=== PATIENT | female | born 1990 | race Caucasian/White ===

== ENCOUNTER 2019-12-02 14:22 | Outpatient (CLI) | payer OTHER, SELFPAY ==
--- NOTE | ~2019-12-02 | US_ITS ---
EXAMINATION: US renal BI EXAM DATE: 12/02/2019 15:06 INDICATION: Lupus. TECHNIQUE: Multiple grayscale and Doppler images of the kidneys were obtained (by a technologist who performed the scan) and subsequently reviewed. There is no prior study for comparison. FINDINGS: Right kidney: There is normal contour and echogenicity. It measures 10.3 x 5.4 x 3.9 centimeters. T here are no focal renal lesions identified. There is no hydronephrosis. Left kidney: There is normal contour and echogenicity. It measures 10.2 x 4.5 x 4.4 centimeters. Th ere are no focal renal lesions identified. There is no hydronephrosis. Bladder unremarkable. IMPRESSION: 1. Sonographically unremarkable kidneys. Reviewed, dictated and finalized at location B.
== END 2019-12-02 14:23 | disposition home or self-care (01) ==
LOC: ANHIMG 14:29
PROVIDERS: PCP Internal Medicine; Visit Provider Internal Medicine
DX: R60.9 Edema, unspecified (principal)
CPT/HCPCS: 76775

== ENCOUNTER 2021-08-18 13:21 | Observation (INO) | payer OTHER, MEDICAID, SELFPAY ==
--- NOTE | ~2021-08-18 | US_ITS ---
EXAMINATION: US OB follow up w BPP DATE: 08/18/2021 14:54 INDICATION: Vaginal bleeding during third trimester . Complete previa. TECHNIQUE: Real-time pelvic ultrasound was performed utilizing transabdominal probe. The interpreting radiologist was not present for the study. COMPARISON: None. FINDINGS: There is a single living fetus in vertex presentation. The placenta is posterior and appears to exte nd caudally to near the region of the cervix which is not clearly visualized. No evident subchorionic hematoma. heart rate is 136 beats per minute (bpm). Normal amniotic fluid index of 12.4 cm (5t h%-95%: 8.3-24.5 cm at 33 weeks estimated gestational age) The following biometric data were obtained: BPD: 7.0 cm -> 28 weeks 1 days Head circumference: 29.7 cm -> 32 weeks 6 days Abdominal circumference: 28.4 cm -> 32 weeks 3 days Femur length: 5.8 cm -> 30 weeks 3 days Dolichocephaly with cephalic index of 63%. These measurements are otherwise concordant. Head circumference to abdominal circumference ratio: 1.05 (normal range 0.96-1.17). Estimated weight: 1773 g (+/-) 266 g, 3 lbs 15 oz (+/-) 9 oz Biophysical profile performed by the technologist: breathing (30 sec sustained breathing in 30 minutes): 2 out of 2 movement (3 gross body movements in 30 minutes): 2 out of 2 tone (one episode of slnyqfd-ajexaghuo-lsidghp limb movement): 2 out of 2 Amniotic fluid pocket (2 cm): 2 out of 2 Total score: 8 out of 8 IMPRESSION: 1. Single living fetus in vertex presentation with heart rate of 136 bpm. 2. Biophysical profile 8 out of 8. 3. Posterior placenta which extends caudally to the expected location of the cervix which is not yina rly visualized. 4. Gestational age by ultrasound of 31 weeks 0 day(s) +/-2 weeks and 1 day with ultrasound estimated date of delivery (ELVIN) of 10/20/2021. Estimated weight is 8th percentile by Hadlock criteria wh en 10/06/2021 is used as the ELVIN. Please correlate with clinical information or earlier ultrasounds for most accurate ELVIN. 5. Dolichocephaly with cephalic index of 63% Reviewed, dictated and finalized at location A. IMPRESSION: 1. Single living fetus in vertex presentation with heart rate of 136 bpm. 2. Biophysical profile 8 out of 8. 3. Posterior placenta which extends caudally to the expected location of the ce rvix which is not clearly visualized. 4. Gestational age by ultrasound of 31 weeks 0 day(s) +/-2 weeks and 1 day wit h ultrasound estimated date of delivery (ELVIN) of 10/20/2021. Estimated grace ght is 8th percentile by Hadlock criteria when 10/06/2021 is used as the ELVIN. Ple ase correlate with clinical information or earlier ultrasounds for most accurat e ELVIN. 5. Dolichocephaly with cephalic index of 63%
[2021-08-18 13:31] VITALS: BP 145/95; PULSE 117
[2021-08-18 13:46] VITALS: BP 125/79; PULSE 102
[2021-08-18 14:01] VITALS: BP 127/87; PULSE 97
--- NOTE | 2021-08-18 14:05 | OBADM ---
This patient, Ti Tomas, admitted to the OB room OB Post 116 for observation. Patient/family oriented to hospital policies and general routines including ID bracelet, bed and alarms, visiting hours, pain management, procedures, bathroom and other care routines, personal items, smoking policy, room service/diet, and visiting hours. Patient/Family are encouraged to report perceived risks to care and to ask questions if they do not understand what they are told or what they should do.
--- NOTE | 2021-08-18 14:05 | PC.NURSE ---
[address]Santi MOELLERM called,informed pt came in stating she had some bleeding 2 days ago that resolved so she didn't come in but had some specs of old blood today and hasn't felt the baby move like she normally does. Informed no contractions are noted, 10x10 accelerations noted with only one 15x15. Pt is feeling more movement since she came here. Orders received to get US for bpp,placenta check,lucie, growth.
[2021-08-18 15:37] LABS: Add Urine Microscopic? YES; Appearance Urine Cloudy (Clear); Bacteria Urine Trace /hpf; Bilirubin Urine Negative (Negative); Blood Urine 3+ (Negative); Color Urine Yellow (Yellow); Glucose Urine UA Negative (Negative); Ketones Urine Negative (Negative); Leukocyte Esterase Ur 2+ LEU/UL (Negative); Mucus Urine Rare /lpf; Nitrate Urine Negative (Negative); Protein Urine Negative (Negative); Specific Grav Ur 1.015 (1.001-1.035); Squamous Epithelial Cell Urine Many /hpf (Few); Urobilinogen Urine Negative mg/dL (<2.0)
--- NOTE | 2021-08-20 07:02 | PM.OBTRLD ---
OB - Triage/Final Diagnosis Visit Information Date of evaluation: 08/18/21 Reason for evaluation: other (bleeding) Comments/Additional reasons for admission: I have assessed the risk for this patient, Ti Tomas, and determined that she would benefit from observation care. Evaluation Laboratory results: Laboratory Tests 08/18/21 15:18 Urine Color Yellow Urine Appearance Cloudy H Urine pH 6.0 Ur Specific [place] 1.015 Urine Protein Negative Urine Glucose (UA) Negative Urine Ketones Negative Ur Blood (Man) 3+ H Urine Nitrate Negative Urine Bilirubin Negative Urine Urobilinogen Negative Leukocyte Esterase Rfl 2+ H Urine RBC 3-5 H Urine WBC 10-15 H Ur Squamous Epith Cells Many H Urine Bacteria Trace Urine Mucus Rare
== END 2021-08-18 16:10 | disposition home or self-care (01) ==
PROVIDERS: Advanced Practice Midwife; Admitting Provider Obstetrics & Gynecology; PCP Internal Medicine; Visit Provider Obstetrics & Gynecology
DX: O46.8X3 Other antepartum hemorrhage, third trimester (principal); Z3A.33 33 weeks gestation of pregnancy
CPT/HCPCS: 76816; 76819; 81001; 87086; G0378; G0379

== ENCOUNTER 2021-08-21 11:54 | Observation (INO) | payer OTHER, MEDICAID, SELFPAY ==
--- NOTE | ~2021-08-21 | US_ITS ---
EXAMINATION: US OB limited w BPP DATE: 08/21/2021 14:31 CDT INDICATION: Bleeding. Placenta previa. TECHNIQUE: Real-time transabdominal obstetric ultrasound. FINDINGS: Ultrasound dated 08/18/2021 There is a single living fetus in breech presentation. The placenta is posterior with a placenta pre via. cardiac activity and movement is noted with a heart rate of 134 beats per minute. A FI is normal measuring 12.0 cm. Biophysical profile: breathin of 2 movement: 2 of 2 tone: 2 of 2 Amniotic flud pocket: 2 of 2 Total score: 8 of 8 IMPRESSION: 1. Single living intrauterine in breech presentation. 2: Total biophysical profile score of 8/8. 3: Placenta previa. Reviewed, dictated and finalized at location A.
[2021-08-21 12:15] VITALS: BMI 32.6
--- NOTE | 2021-08-21 12:15 | OBADM ---
This patient, Ti Tomas, admitted to the OB room OB Post 115 for observation. Patient/family oriented to hospital policies and general routines including ID bracelet, bed and alarms, visiting hours, pain management, procedures, bathroom and other care routines, personal items, smoking policy, room service/diet, and visiting hours. Patient/Family are encouraged to report perceived risks to care and to ask questions if they do not understand what they are told or what they should do.
[2021-08-21 13:01] VITALS: BP 130/81; PULSE 95
[2021-08-21 13:15] VITALS: BP 122/80; PULSE 99
[2021-08-21 13:30] VITALS: BP 126/77; PULSE 95
[2021-08-21 13:45] VITALS: BP 124/82; PULSE 92
[2021-08-21 14:27] VITALS: BP 100/74; PULSE 98
[2021-08-21 14:30] VITALS: BP 115/80; PULSE 106
--- NOTE | 2021-09-10 08:33 | PM.OBPNVD ---
OB - PN: Subj Subjective Date/time seen: 09/10/21 08:33 31-year-old multiparous previa who presented for vaginal bleeding. After ultrasound she left against medical advice. OB - PN A/P Time Spent With Patient Time: Total time spent is greater than 50% in coordination of care (as documented) at patient's floor/unit and/or counseling patient:
== END 2021-08-21 15:47 | disposition left against medical advice (07) ==
PROVIDERS: Admitting Provider Obstetrics & Gynecology; PCP Internal Medicine; Visit Provider Obstetrics & Gynecology
DX: O46.93 Antepartum hemorrhage, unspecified, third trimester (principal); Z3A.33 33 weeks gestation of pregnancy
CPT/HCPCS: 76815; 76819; G0378; G0379

== ENCOUNTER 2021-08-31 22:39 | Inpatient (IN) | payer OTHER, MEDICAID, SELFPAY ==
--- NOTE | ~2021-08-31 | XR_ITS ---
EXAMINATION: XR chest 2V DATE: 09/01/2021 16:29 INDICATION: Shortness of breath and cough. Recent section. TECHNIQUE: Frontal and lateral views of the chest were obtained. COMPARISON: Chest 2 views 10/17/2012 FINDINGS: There are patchy airspace opacities in the mid and lower lung zones, left worse than right. No pleural effusion or pneumothorax. The heart size is normal. IMPRESSION: 1. Patchy airspace opacities in the mid and lower lung zones, left worse than right, consistent with atelectasis versus pneumonia. Reviewed, dictated and finalized at location A. IMPRESSION: 1. Patchy airspace opacities in the mid and lower lung zones, left worse than r ight, consistent with atelectasis versus pneumonia.
--- NOTE | 2021-08-31 23:15 | PM.IMHP ---
H&P: HPI History of Present Illness Date/Time: 08/31/21 23:15 Chief Complaint: bleeding Narrative: Ti is a 31yo at 34.5 who presented with SROM and heavy vaginal bleeding with known placenta previa. is complicated by scant care, only 2 visits, newly diagnosed Hep C, tobacco use, hypothyroid (not taking medication), bipolar. She drove herself here and was brought in by staff with heavy bleeding, >500cc so far for certain. Pt denies recent drug use and has remote history of IVDU. ALso IUGR 8% on last US a month ago. Review of Systems Review of Systems: All systems reviewed & are unremarkable except as noted in HPI and below PMFSH Past Medical History Medical History (Updated 02/20/20 @ 10:57 by Darian Redman Jr., MD) Bipolar II disorder Family History Family History (Updated 11/21/19 @ 15:06 by Darian Redman Jr., MD) Mother Diabetes mellitus COPD mixed type CHF (congestive heart failure) Hypertensive heart disease with congestive heart failure and chronic kidney disease Sibling Crohn's disease, unspecified, without complications Sibling Thyroid disease Social History Social History (Updated 11/21/19 @ 15:09 by Darian Redman Jr., MD) Smoking packs per day: 0.5 Smoking cigarettes per day: 10.0 Years smoked: 14 Smoking pack-years: 7.00 Smoking status: Current every day smoker Tobacco type: cigarettes Second hand tobacco smoke exposure: Yes Substance use: current Substance use type: other Other substance usage details: used to smoke weed when younger Last use: 5 years ago Gender identity (if verbalized by the patient): Female Sexual Orientation (if Verbalized by the Patient): Straight or Heterosexual Spiritual care concerns: Yes Agree to blood products: Yes Meds Home Medications and Allergies Home Medications Medication Instructions Recorded Confirmed Type quetiapine 150 mg tablet,extended 150 mg PO QPM 30 Days #30 tablet 08/13/20 Rx release 24 hr Allergies Allergy/AdvReac Type Severity Reaction Status Date / Time Penicillins Allergy Unknown RASH/ HIVES Verified 07/01/20 15:48 Exam Const: General: no acute distress Resp: Effort & Inspection: normal respiratory effort Auscultation: clear to auscultation bilaterally Cardio: Rate: regular rate Rhythm: regular rhythm GI: GI Palp: Yes Soft to palpation Extrem: General: normal to inspection Assessment and Plan Additional Plan Plan primary CS for bleeding previa 34.5 labs ordered re thyroid and Hep C UDS Discussed RBA, pt consented, all questions answered. FHT category 1 at this time will proceed as soon as IV placed..
[2021-08-31 23:18] LABS: Basophils Percent Auto 0.2 % (0.2-1.2); Eosinophils Absolute Auto 0.1 K/mm3 (0-0.3); Eosinophils Percent Auto 0.6 % (0-4.4); Hematocrit 34.3 % (37.0-47.0); Hemoglobin 11.4 g/dL (12.0-15.0); Immature Granulocyte Absolute 0.05 K/mm3 (0.00-0.031); Immature Granulocyte Percent A 0.5 % (0-0.5); Lymphocytes Absolute Auto 1.99 K/mm3 (0.9-3.2); Lymphocytes Percent Auto 21.4 % (18.3-44.2); Mean Corpuscular HGB Conc 33.2 g/dl (32-36); Mean Corpuscular Hemoglobin 29.5 pg (26-34); Mean Corpuscular Volume 88.9 fl (80-100); Mean Platelet Volume 10.4 fl (7.4-10.4); Monocytes Absolute Auto 0.7 K/mm3 (0.1-0.6); Monocytes Percent Auto 7.1 % (2.6-8.5); Neutrophils Absolute Auto 6.5 K/mm3 (1.3-6.7); Neutrophils Percent Auto 70.2 % (45.5-73.1); Platelet Count Result 274 k/mm3 (150-375); Red Blood Count 3.86 M/mm3 (4.2-5.4); Red Cell Distribution Width 13.7 % (11.5-14.5); White Blood Count 9.3 K/mm3 (4.5-10.0)
[2021-08-31 23:28] LABS: Alanine Aminotransferase 24 U/L (4-35); Albumin Level 3.7 g/dL (3.5-5.1); Alkaline Phosphatase 165 U/L (38-126); Anion Gap 7 mmol/L (8-16); Aspartate Amino Transferase 28 U/L (14-36); Bilirubin,Total 0.4 mg/dL (0.2-1.3); Blood Urea Nitrogen 7 mg/dL (7-17); Calcium 9.6 mg/dL (8.4-10.2); Carbon Dioxide 21 mmol/L (22-30); Chloride 107 mmol/L (98-107); Estimated Glomerular Filt Rate > 60; Glucose 101 mg/dL (65-110); Potassium 3.9 mmol/L (3.4-5.0); Sodium 135 mmol/L (137-145)
--- NOTE | 2021-08-31 23:55 | WPDANESEPP ---
Anes - Eval Pre Procedure Date/Time: 08/31/21 23:55 Pre Op Diagnosis: Placenta Previa Patient Data Age: 31 Gender: F Height: Weight: Allergies Allergy/AdvReac Type Severity Reaction Status Date / Time Penicillins Allergy Unknown RASH/ HIVES Verified 07/01/20 15:48 Home Medications Medication Instructions Recorded Confirmed Type quetiapine 150 mg tablet,extended 150 mg PO QPM 30 Days #30 tablet 08/13/20 Rx release 24 hr Laboratory Tests 08/31/21 08/31/21 08/31/21 23:08 23:09 23:09 WBC 9.3 K/mm3 K/mm3 (4.5-10.0) RBC 3.86 M/mm3 L M/mm3 (4.2-5.4) Hgb 11.4 g/dL L g/dL (12.0-15.0) Hct 34.3 % L % (37.0-47.0) MCV 88.9 fl fl (80-100) MCH 29.5 pg pg (26-34) MCHC 33.2 g/dl g/dl (32-36) RDW 13.7 % % (11.5-14.5) Plt Count 274 k/mm3 k/mm3 (150-375) MPV 10.4 fl fl (7.4-10.4) Immature Gran % (Auto) 0.5 % % (0-0.5) Neut % (Auto) 70.2 % % (45.5-73.1) Lymph % (Auto) 21.4 % % (18.3-44.2) [place] % (Auto) 7.1 % % (2.6-8.5) Eos % (Auto) 0.6 % % (0-4.4) Baso % (Auto) 0.2 % % (0.2-1.2) Lymph # (Auto) 1.99 K/mm3 K/mm3 (0.9-3.2) [place] # (Auto) 0.7 K/mm3 H K/mm3 (0.1-0.6) Eos # (Auto) 0.1 K/mm3 K/mm3 (0-0.3) Baso # (Auto) 0.0 K/mm3 K/mm3 (0.0-0.1) Abs Immat Gran (auto) 0.05 K/mm3 H K/mm3 (0.00-0.031) Absolute Neuts (auto) 6.5 K/mm3 K/mm3 (1.3-6.7) Absolute Nucleated RBC 0.0 K/mm3 K/mm3 (0.0-0.012) Nucleated RBC % 0.0 % % (0.0-0.2) Sodium 135 mmol/L L mmol/L (137-145) Potassium 3.9 mmol/L mmol/L (3.4-5.0) Chloride 107 mmol/L mmol/L (98-107) Carbon Dioxide 21 mmol/L L mmol/L (22-30) Anion Gap 7 mmol/L L mmol/L (8-16) BUN 7 mg/dL mg/dL (7-17) Creatinine 0.50 mg/dL L mg/dL (0.7-1.0) Estim Creat Clear Calc Not Reportable Estimated GFR > 60 (59 - ) Glucose 101 mg/dL mg/dL (65-110) Calcium 9.6 mg/dL mg/dL (8.4-10.2) Total Bilirubin 0.4 mg/dL mg/dL (0.2-1.3) Direct Bilirubin AST 28 U/L U/L (14-36) ALT 24 U/L U/L (4-35) Alkaline Phosphatase 165 U/L H U/L (38-126) Total Protein 8.0 g/dL g/dL (6.3-8.2) Albumin 3.7 g/dL g/dL (3.5-5.1) RPR Hep Bs Antigen HIV 1&2 Ab/P24 Ag 4thGn Rubella IgG Antibody Pending 08/31/21 08/31/21 08/31/21 23:09 23:09 23:12 WBC RBC Hgb Hct MCV MCH MCHC RDW Plt Count MPV Immature Gran % (Auto) Neut % (Auto) Lymph % (Auto) [place] % (Auto) Eos % (Auto) Baso % (Auto) Lymph # (Auto) [place] # (Auto) Eos # (Auto) Baso # (Auto) Abs Immat Gran (auto) Absolute Neuts (auto) Absolute Nucleated RBC Nucleated RBC % Sodium Potassium Chloride Carbon Dioxide Anion Gap BUN Creatinine Estim Creat Clear Calc Estimated GFR Glucose Calcium Total Bilirubin Direct Bilirubin AST ALT Alkaline Phosphatase Total Protein Albumin RPR Pending Hep Bs Antigen Pending HIV 1&2 Ab/P24 Ag 4thGn Pending Rubella IgG Antibody 08/31/21 23:12 WBC RBC Hgb Hct MCV MCH MCHC RDW Plt Count M
[2021-08-31 23:59] LABS: Alanine Aminotransferase 23 U/L (4-35); Albumin Level 3.6 g/dL (3.5-5.1); Alkaline Phosphatase 166 U/L (38-126); Aspartate Amino Transferase 28 U/L (14-36); Bilirubin,Total 0.3 mg/dL (0.2-1.3)
[2021-09-01] VITALS (68 sets, daily range): BP systolic 91–137; BP diastolic 50–92; PULSE 51–129; RESP 13–24; TEMP 36–37.2; O2SAT 90–97; BMI 31.4
--- NOTE | 2021-09-01 00:04 | WPDANESEFPP ---
Anes - Eval Final PreProcedure Day of Procedure 09/01/21 00:04 Patient weight: obese Heart: regular rate and rhythm Lungs: clear to auscultation and normal air movement Airway: Mallampati scale class III Neurological: alert and oriented Last oral intake: >/= 8 hours ASA classification: III Emergent: yes Anesthetic plan: proceed Anesthesia type and monitoring: general ETT and standard monitoring Other findings: Placental abruption - emergent, and unable to safely attempt spinal Results Review: All pre-operative results and documents have been reviewed as part of the pre-operative evaluation. Informed Consent: The patient's anesthetic plan and its attendant risks and benefits were discussed with the patient/family/POA. Questions were solicited and answers provided to the satisfaction of the patient/family/POA.
[2021-09-01 00:08] LABS: HIV 1/2 Ab P24 Ag Result Negative (Negative)
[2021-09-01 00:10] LABS: Rubella IgG Antibody < 0.6 IU/ML
[2021-09-01 00:26] LABS: Hepatitis B Surface Antigen Negative (Negative)
--- NOTE | 2021-09-01 00:34 | PM.OBPRVD ---
OB - Delivery Note Procedure Delivery date: 09/01/21 Procedure: classical section Events: Other (scant care, newly diagnose Hepatitis C) Intrapartal Events: Other (bleeding placenta previa) Route of delivery: (classical) Specimen: Yes (placenta) Quantitative Blood Loss (ml): 715 (plus about 500cc prior to in her car, on wheelchair, clothing, floor, and bed) Anesthesia type: General Disposition: Floor Complications: none Narrative: The patient was taken to the OR and was placed in dorsal supine position with left lateral tilt. SCDs and vang were placed. She was prepped and draped in the normal sterile fashion. GETA was administered. A Pfannensteil skin incision was made and carried through to the underlying layer of fascia. The fascia was incised in the midline and then extended laterally using Padilla scissors. The muscles were in the midline and the peritoneum was entered bluntly. The peritoneal incision was extended inferiorly and superiorly with care to avoid the bladder. A low transverse uterine incision was started with a scalpel but upon noting a very thick lower uterine segment, no palpable presenting part, and placenta presenting, it was converted to a classical incision. Minimal fluid was noted, a moderate amount of placenta delivered prior to the baby. The head was delivered, followed by the remainder of the baby. The baby's oropharynx was suctioned and he was handed to the waiting pediatrics team. The placenta was then removed manually. The uterus was exteriorized. A moist lap sponge was used to curette the endometrium. The uterine incision was then closed in layers with 3-0 vicryl. Good hemostasis was noted. The posterior cul de sac was irrigated with normal saline and cleared of all clot and debris. The uterus was returned to the abdomen. Both lateral gutters were then irrigated. Seprafilm was placed over the uterine incision. The rectus muscles were inspected and found to be hemostatic. The fascia was reapproximated using 0-Vicryl in running fashion. The subcutaneous tissue was irrigated with normal saline and made hemostatic with Bovie electrocautery. The skin was then closed with absorbable sheila. Steri strips and a bandage were applied. The uterus was evacuated. The patient tolerated the procedure very well. All counts were correct. She was taken to the recovery room in good condition. [place] Baby Date of : 09/01/21 Time of : 23:40 Weeks of gestation at delivery: 35 Infant gender: Male presentation: vertex Placenta delivery description: Manual Removal Cord Vessel Description: 3 Vessels and Clamped/Cut
--- NOTE | 2021-09-01 01:02 | LDADM ---
This patient, Ti Tomas, was admitted to Labor/Delivery/Recovery 120 on 08/31/21 at 22:39. Plans for labor, pain management and were discussed with patient. Patient/family oriented to hospital policies and general routines including ID bracelet, bed and alarms, visiting hours, pain management, procedures, bathroom and other care routines, personal items, smoking policy, room service/diet and guest tray routines, security routines, and visiting hours. Patient/Family are encouraged to report perceived risks to care and to ask questions if they do not understand what they are told or what they should do. See OBIX for further documentation.
[2021-09-01] MEDS: MORPHINE SULFATE INJ (*CRX) 10 MG/ML AMP 2 MG IV PUSH ×4 (01:24→02:05)
[2021-09-01 01:52] LABS: Amphetamine Screen Urine Negative (Negative); Barbiturate Screen Urine Negative (Negative); Benzodiazepines Screen Urine Negative (Negative); Cannabinoid Screen Urine Negative (Negative); Cocaine Screen Urine Negative (Negative); Methadone Screen Urine Negative (Negative); Opiate Screen Urine Negative (Negative); Phencyclidine Screen Urine Negative (Negative)
[2021-09-01] MEDS: HYDROmorphon 0.2MG/ML PCA(*CRX 6 MG/30 ML PCA.VIAL 1 MG IV CONT (02:20)
--- NOTE | 2021-09-01 02:54 | OBPPTRN ---
Patient transferred to post room #288 via bed. Support person present. Oriented to unit, room, information board, rooming in, admission packet and security measures. Patient verbalizes understanding.
[2021-09-01] MEDS: KETOROLAC 30 MG/ML VIAL (*BKC) IV PUSH ×4 (03:58→23:50)
[2021-09-01] MEDS: DEXTROSE 5%/0.45% SOD CHL 1,000 ML 125 ML IV CONT (04:57)
[2021-09-01 06:28] LABS: Rapid Plasma Reagin Non-Reactive (NonReactive)
--- NOTE | 2021-09-01 07:25 | PM.OBPNVD ---
OB - PN: Subj Subjective Date/time seen: 09/01/21 07:25 incision CDI Interval history: Pt has ASSISTANT ASSOCIATE PROFESSOR, doing well Patient comments: incisional pain [place] baby status: doing well OB - PN: Obj Data Labs CBC & Chem 7: 08/31/21 23:09 08/31/21 23:08 Labs: Laboratory Results - last 24 hr 08/31/21 08/31/21 08/31/21 23:08 23:09 23:09 WBC 9.3 RBC 3.86 L Hgb 11.4 L Hct 34.3 L MCV 88.9 MCH 29.5 MCHC 33.2 RDW 13.7 Plt Count 274 MPV 10.4 Immature Gran % (Auto) 0.5 Neut % (Auto) 70.2 Lymph % (Auto) 21.4 [place] % (Auto) 7.1 Eos % (Auto) 0.6 Baso % (Auto) 0.2 Lymph # (Auto) 1.99 [place] # (Auto) 0.7 H Eos # (Auto) 0.1 Baso # (Auto) 0.0 Abs Immat Gran (auto) 0.05 H Absolute Neuts (auto) 6.5 Absolute Nucleated RBC 0.0 Nucleated RBC % 0.0 Sodium 135 L Potassium 3.9 Chloride 107 Carbon Dioxide 21 L Anion Gap 7 L BUN 7 Creatinine 0.50 L Estim Creat Clear Calc Not Reportable Estimated GFR > 60 Glucose 101 Calcium 9.6 Total Bilirubin 0.4 Direct Bilirubin AST 28 ALT 24 Alkaline Phosphatase 165 H Total Protein 8.0 Albumin 3.7 Urine Opiates Screen Urine Methadone Screen Ur Barbiturates Screen Ur Phencyclidine Scrn Ur Amphetamine Screen U Benzodiazepines Scrn Urine Cocaine Screen U Cannabinoids Screen RPR Hep Bs Antigen HIV 1&2 Ab/P24 Ag 4thGn Rubella IgG Antibody < 0.6 L Blood Type Antibody Screen 08/31/21 08/31/21 08/31/21 23:09 23:09 23:12 WBC RBC Hgb Hct MCV MCH MCHC RDW Plt Count MPV Immature Gran % (Auto) Neut % (Auto) Lymph % (Auto) [place] % (Auto) Eos % (Auto) Baso % (Auto) Lymph # (Auto) [place] # (Auto) Eos # (Auto) Baso # (Auto) Abs Immat Gran (auto) Absolute Neuts (auto) Absolute Nucleated RBC Nucleated RBC % Sodium Potassium Chloride Carbon Dioxide Anion Gap BUN Creatinine Estim Creat Clear Calc Estimated GFR Glucose Calcium Total Bilirubin Direct Bilirubin AST ALT Alkaline Phosphatase Total Protein Albumin Urine Opiates Screen Urine Methadone Screen Ur Barbiturates Screen Ur Phencyclidine Scrn Ur Amphetamine Screen U Benzodiazepines Scrn Urine Cocaine Screen U Cannabinoids Screen RPR Non-reactive Hep Bs Antigen Negative HIV 1&2 Ab/P24 Ag 4thGn Negative Rubella IgG Antibody Blood Type Antibody Screen 08/31/21 08/31/21 09/01/21 23:12 23:12 01:31 WBC RBC Hgb Hct MCV MCH MCHC RDW Plt Count MPV Immature Gran % (Auto) Neut % (Auto) Lymph % (Auto) [place] % (Auto) Eos % (Auto) Baso % (Auto) Lymph # (Auto) [place] # (Auto) Eos # (Auto) Baso # (Auto) Abs Immat Gran (auto) Absolute Neuts (auto) Absolute Nucleated RBC Nucleated RBC % Sodium Potassium Chloride Carbon Dioxide Anion Gap BUN Creatinine Estim Creat Clear Calc Estimated GFR Glucose Calcium Total Bilirubin 0.3 Direct Bilirubin 0.0 AST 28 ALT 23 Alkaline Phosphatase 166 H Total Protein 7.0 Albumin 3.6 Urine Opiates Screen Negative Urine Methadone Screen Negative Ur Barbiturates Screen Negative Ur Phencyclidine Scrn Negative Ur Amphetamine Screen Negative U Benzodiazepines Scrn Negative Urine Cocaine Screen Negative U Cannabinoids Screen Negative RPR Hep Bs Antigen HIV 1&2 Ab/P24 Ag 4thGn Rubella IgG Antibody Blood Type O Positive Antibody Screen Negative OB - PN A/P Plan day: 1 Comments: s/p general anesthesia for sectio, bleeding, complete previa, awaiting am labs Time Spent With Patient Time: Total time spent is greater than 50% in coord
[2021-09-01 09:27] LABS: Basophils Percent Auto 0.1 % (0.2-1.2); Hematocrit 25.9 % (37.0-47.0); Hemoglobin 8.5 g/dL (12.0-15.0); Immature Granulocyte Absolute 0.06 K/mm3 (0.00-0.031); Immature Granulocyte Percent A 0.4 % (0-0.5); Lymphocytes Absolute Auto 1.06 K/mm3 (0.9-3.2); Lymphocytes Percent Auto 7.1 % (18.3-44.2); Mean Corpuscular HGB Conc 32.8 g/dl (32-36); Mean Corpuscular Hemoglobin 29.6 pg (26-34); Mean Corpuscular Volume 90.2 fl (80-100); Mean Platelet Volume 10.6 fl (7.4-10.4); Monocytes Absolute Auto 0.8 K/mm3 (0.1-0.6); Monocytes Percent Auto 5.5 % (2.6-8.5); Neutrophils Percent Auto 86.9 % (45.5-73.1); Platelet Count Result 237 k/mm3 (150-375); Red Blood Count 2.87 M/mm3 (4.2-5.4); Red Cell Distribution Width 13.6 % (11.5-14.5)
[2021-09-01 09:42] LABS: Free T4 Free Thyroxine 0.59 ng/mL (0.78-2.19)
--- NOTE | 2021-09-01 11:35 | PC.NURSE ---
Toradol given and FIRE PREVENTION BUREAU CAPTAIN discontinued, patient is rating pain a 7 but wants FIRE PREVENTION BUREAU CAPTAIN discontinued at this time. She states the pain is only when she coughs.
--- NOTE | 2021-09-01 12:48 | PC.NURSE ---
On 09/01/21, the student, Jaciel Nash, provided care and completed [facility] documentation on this patient. I have reviewed the student's documentation and agree with the findings.
[2021-09-01] MEDS: KCL 20 MEQ/D5/0.45% SOD CHL 1,000 ML 125 ML IV CONT (13:23)
[2021-09-01] MEDS: POLYSACCHARIDE IRON COMPLEX 150 MG CAPSULE PO (15:27)
[2021-09-01] MEDS: DOCUSATE SODIUM 100 MG CAPSULE PO (15:27)
[2021-09-01] MEDS: HYDROcodone/acetaminophen (*CRX) 10-325 MG TABLET 1 TAB PO ×2 (15:27→21:52)
[2021-09-01] MEDS: ALBUTEROL SULFATE NEB 2.5 MG/3 ML INH 1.25 MG INHALATION (16:05)
--- NOTE | 2021-09-01 16:20 | PCCCNOTE ---
Care Coordination Consult: Met with pt. today who reports this is her second child. She has a 9 year old at home. Pt. lives at home with her 9 year old. FOB is involved but they are no longer together. Pt. complaining of pain with RN aware and pt. set to go down for testing. Pt. reports she does have her sister Erica who is supportive and can assist in some needs at discharge. resources provided. Pt. is current with [facility] but will look into [facility] services. Pt. reports her apartment has black mold issues and she is trying to get her landlord to address the issue. Spoke about housing resources that would include information on the [facility] Housing authority, this information was provided to her however she reports she does not need subsidized housing. She has all necessary supplies for the baby at home including a crib, carseat, clothing etc. She plans to bottle feed baby at discharge. Pt. was interested in a basket with baby supplies and this was provided to her. Pt. aware she tested negative for all substances at admission. Baby also tested negative in urinalysis at admission. Per RN pt. reports recreational marijuana use, pt. denies any continued marijuana use at discharge. Pt. denies any further case management needs.
--- NOTE | 2021-09-01 16:45 | WPDANLDNPN2 ---
Anes-Prog Note L&D-Neuraxial Date/Time: 09/01/21 16:45 Neuraxial medications: intrathecal PF morphine Opiod-related complaints: none Patient feedback: Patient satisfied with post-operative pain management.
--- NOTE | 2021-09-01 16:46 | WPDANLDPN2 ---
Anes-Prog Note L&D Date/Time: 09/01/21 16:46 Comfortable throughout: section Neuraxial method: spinal Epidural/Spinal procedure site: clean & non-tender Neuro status: Neuro function grossly intact. Cardiovascular status: normal Respiratory status: normal Airway patency: baseline Mental status: baseline Post-Op hydration status: normal Vital Signs: Last Vital Signs Temp 36.7 C 09/01/21 11:30 Pulse 116 H 09/01/21 15:30 Resp 24 H 09/01/21 15:30 BP 115/71 09/01/21 14:12 Pulse Ox 94 09/01/21 15:30 Pain score (VAS): 9 out of 10, one time dose of iv dilaudid ordered I/O: Intake & Output 09/01/21 09/01/21 09/01/21 07:59 15:59 23:59 Intake Total 22 Output Total 453 860 Balance -[phone] Post-procedural complaints: none Patient feedback: Patient satisfied with anesthetic care.
[2021-09-01] MEDS: HYDROmorphone HCL INJ (*CRX) 1 MG/ML SYR 0.5 MG IV PUSH (16:58)
[2021-09-01 17:36] LABS: Basophils Percent Auto 0.2 % (0.2-1.2); Eosinophils Percent Auto 0.1 % (0-4.4); Hematocrit 26.9 % (37.0-47.0); Hemoglobin 8.6 g/dL (12.0-15.0); Immature Granulocyte Absolute 0.06 K/mm3 (0.00-0.031); Immature Granulocyte Percent A 0.4 % (0-0.5); Lymphocytes Percent Auto 8.6 % (18.3-44.2); Mean Corpuscular Hemoglobin 29.8 pg (26-34); Mean Corpuscular Volume 93.1 fl (80-100); Mean Platelet Volume 10.4 fl (7.4-10.4); Monocytes Absolute Auto 0.8 K/mm3 (0.1-0.6); Monocytes Percent Auto 5.2 % (2.6-8.5); Neutrophils Absolute Auto 12.9 K/mm3 (1.3-6.7); Neutrophils Percent Auto 85.5 % (45.5-73.1); Platelet Count Result 239 k/mm3 (150-375); Red Blood Count 2.89 M/mm3 (4.2-5.4); White Blood Count 15.1 K/mm3 (4.5-10.0)
--- NOTE | 2021-09-01 17:56 | PC.NURSE ---
Dr. Arias notified of CBC results, no new orders received at this time. Will continue to monitor pt.
--- NOTE | 2021-09-01 18:48 | PC.NURSE ---
1415-Pt assisted up to chair. Pt did well getting out of bed and transferred to chair. Once in the chair she started coughing but it hurt to cough so she tried to muffle her cough but it just caused her to cough more until she was coughing uncontrollable and it caused her pain to increase. Due to the amount of coughing she became short of breath and said it was hard to breathe. Told her to relax and try to take some deep breaths. We hooked her up to the pulse ox and annika Leon took her vitals. Vitals were stable with pulse ox starting off at 92 and reaching 94% after a couple of minutes. Patients breathing returned to normal as coughing subsided. Call light within reach, told pt to call out when ready to get back in bed, she verbalized understanding. Pt sat in the chair till 1529 1530-- Pt. assisted back to bed and tolerated moving well but started coughing again. The coughing again made her short of breath and she had trouble breathing. Vitals again were taken and pulse ox was the same, started at 91% this time and only lg to 94%. Wheezing was heard in right side of chest. Dr. Arias was notified and orders received to get a nebulizer treatment for the patient and a chest x-ray. 1615- Pt. taken to x-ray per wheelchair 1640- Pt. back to the floor per wheelchair and assisted back to bed, again coughing and shortness of breath occur. With any movement coughing and shortness of breath seems to occur. 1710- Chest x-ray results called to Dr. Arias along with vital signs and status update. Orders received for blood work. 1756- Dr. Arias notified of labs and pt. status, no new orders received. Will continue to monitor pt. through the night and call if status changes 1809- Report given to Jerri Buckner RN
[2021-09-01] MEDS: SIMETHICONE 80 MG TAB.CHEW PO (23:50)
--- NOTE | 2021-09-01 23:50 | PC.NURSE ---
At 2345, this RN went to speak to the patient about getting up to the chair one last time for the evening and removing her vang catheter. Patient started coughing and moaning. I educated the patient on using her incentive spirometer to help with her breathing and coughing while splinting her abdomen. After having a moment, patient stated, I can't move because I cough every time I move then I can't breathe. Vital signs were obtained at this time and educated the patient about getting out of bed will help.
[2021-09-02] MEDS: HYDROcodone/acetaminophen (*CRX) 10-325 MG TABLET 1 TAB PO ×3 (04:13→14:00)
[2021-09-02 06:25] LABS: Basophils Percent Auto 0.2 % (0.2-1.2); Eosinophils Percent Auto 0.2 % (0-4.4); Hematocrit 24.1 % (37.0-47.0); Hemoglobin 7.7 g/dL (12.0-15.0); Immature Granulocyte Absolute 0.06 K/mm3 (0.00-0.031); Immature Granulocyte Percent A 0.5 % (0-0.5); Lymphocytes Absolute Auto 1.38 K/mm3 (0.9-3.2); Lymphocytes Percent Auto 10.6 % (18.3-44.2); Mean Corpuscular Volume 93.8 fl (80-100); Mean Platelet Volume 9.9 fl (7.4-10.4); Monocytes Absolute Auto 0.6 K/mm3 (0.1-0.6); Monocytes Percent Auto 4.6 % (2.6-8.5); Neutrophils Percent Auto 83.9 % (45.5-73.1); Platelet Count Result 214 k/mm3 (150-375); Red Blood Count 2.57 M/mm3 (4.2-5.4); Red Cell Distribution Width 14.1 % (11.5-14.5); White Blood Count 13.1 K/mm3 (4.5-10.0)
--- NOTE | 2021-09-02 07:36 | PM.OBPNVD ---
OB - PN: Subj Subjective Date/time seen: 09/02/21 07:36 Patient comments: no complaints, pain well controlled, tolerating diet and flatus present OB - PN: Obj Data Labs CBC & Chem 7: 09/02/21 06:20 08/31/21 23:08 Labs: Laboratory Results - last 24 hr 09/01/21 09/01/21 09/01/21 08:46 08:46 08:46 WBC 15.0 H RBC 2.87 L Hgb 8.5 L Hct 25.9 L MCV 90.2 MCH 29.6 MCHC 32.8 RDW 13.6 Plt Count 237 MPV 10.6 H Immature Gran % (Auto) 0.4 Neut % (Auto) 86.9 H Lymph % (Auto) 7.1 L [place] % (Auto) 5.5 Eos % (Auto) 0.0 Baso % (Auto) 0.1 L Lymph # (Auto) 1.06 [place] # (Auto) 0.8 H Eos # (Auto) 0.0 Baso # (Auto) 0.0 Abs Immat Gran (auto) 0.06 H Absolute Neuts (auto) 13.0 H Absolute Nucleated RBC 0.0 Nucleated RBC % 0.0 TSH 3.140 Free T4 0.59 L 09/01/21 09/02/21 17:31 06:20 WBC 15.1 H 13.1 H RBC 2.89 L 2.57 L Hgb 8.6 L 7.7 L Hct 26.9 L 24.1 L MCV 93.1 93.8 MCH 29.8 30.0 MCHC 32.0 32.0 RDW 14.0 14.1 Plt Count 239 214 MPV 10.4 9.9 Immature Gran % (Auto) 0.4 0.5 Neut % (Auto) 85.5 H 83.9 H Lymph % (Auto) 8.6 L 10.6 L [place] % (Auto) 5.2 4.6 Eos % (Auto) 0.1 0.2 Baso % (Auto) 0.2 0.2 Lymph # (Auto) 1.30 1.38 [place] # (Auto) 0.8 H 0.6 Eos # (Auto) 0.0 0.0 Baso # (Auto) 0.0 0.0 Abs Immat Gran (auto) 0.06 H 0.06 H Absolute Neuts (auto) 12.9 H 11.0 H Absolute Nucleated RBC 0.0 0.0 Nucleated RBC % 0.0 0.0 TSH Free T4 Imaging Radiologist's impression: Impressions Chest X-Ray 09/01/21 16:39 IMPRESSION: 1. Patchy airspace opacities in the mid and lower lung zones, left worse than right, consistent with atelectasis versus pneumonia. OB - PN A/P Plan day: 1 Comments: Post Op LTCS - no problems, panic attacks, SOB - nl CXR, nl SaO2, Xanax and inhaler, otherwise routine recovery Time Spent With Patient Time: Total time spent is greater than 50% in coordination of care (as documented) at patient's floor/unit and/or counseling patient: Exam Const: General: cooperative, healthy appearing, comfortable and no acute distress Resp: Auscultation: no crackles, no rales, no rhonchi and no wheezes Cardio: Rhythm: regular rhythm Heart sounds: no click and no murmurs GI: Inspection: non-distended Auscultation: normal bowel sounds Extrem: General: normal to inspection, no pedal edema and no calf tenderness
[2021-09-02 08:15] VITALS: BP 126/82; PULSE 117; RESP 20; TEMP 36.7; O2SAT 94
[2021-09-02] MEDS: IBUPROFEN 600 MG TABLET PO ×3 (08:24→20:29)
[2021-09-02] MEDS: DOCUSATE SODIUM 100 MG CAPSULE PO ×2 (08:25→17:15)
[2021-09-02] MEDS: SIMETHICONE 80 MG TAB.CHEW PO ×3 (08:25→20:29)
[2021-09-02] MEDS: POLYSACCHARIDE IRON COMPLEX 150 MG CAPSULE PO ×2 (08:25→17:14)
[2021-09-02] MEDS: ALPRAZolam (*CRX) 0.5 MG TABLET PO ×3 (09:49→20:29)
[2021-09-02] MEDS: ALBUTEROL SULFATE (*SP) AEROSOL 1 PUFF 2 PUFF INHALATION ×2 (11:00→17:22)
[2021-09-02] MEDS: ACETAMINOPHEN 325 MG TABLET 650 MG PO (17:13)
[2021-09-02] MEDS: HYDROcodone/acetaminophen (*CRX) 5-325 MG TABLET 1 TAB PO ×2 (17:14→20:31)
[2021-09-02 20:30] VITALS: BP 131/82; PULSE 111; RESP 20; TEMP 36.7; O2SAT 97
[2021-09-03] VITALS (11 sets, daily range): BP systolic 121–156; BP diastolic 83–105; PULSE 110–135; RESP 16–26; TEMP 36.6–37.2; O2SAT 95–98
[2021-09-03] MEDS: ALBUTEROL SULFATE (*SP) AEROSOL 1 PUFF 2 PUFF INHALATION ×3 (01:20→15:05)
--- NOTE | 2021-09-03 01:44 | PCRCNOTE ---
Pt & pt's significant other are both current everyday smokers. They have been going outside the hospital during her admission to smoke. I discussed with both of them the importance of quitting smoking not only for themselves, but also for their child and the 9-year-old child they have at home. We discussed the negative effect smoking has on both of them as well as the extremely negative impact both second hand and boiling house hand smoke have had on their 9-year-old child and is already having on their . We talked about different ways to quit and the benefit of them quitting together. The pt is interested in getting a nicotine patch while she is here, and her significant other thinks he will try cold turkey. I did let pt's nurse (Vicenta) know that the pt is interested in a nicotine patch. Pt is concerned that her cough and mucus issues are undiagnosed asthma. Pt's breath sounds are junky but she is moving air well to the bases. I discussed with the pt how quitting smoking would help with what is going on with her cough right now, and we also discussed the importance of moving around, using her incentive spirometer, and splinting her incision in order to have a more effective cough. Pt was advised to follow up with her general practitioner if she continues to have concerns about undiagnosed lung issues. Others have previously had similar conversations with the pt.
[2021-09-03] MEDS: NICOTINE (*PBKC) 14 MG PATCH 1 PATCH TRANSDERM ×2 (01:48→11:00)
--- NOTE | 2021-09-03 04:22 | PC.NURSE ---
several staff members have talked to pt. about taking deep breaths, using IS, decrease smoking, being more ambulatory pt. has agreed to attempt to stop smoking and requested nicotine patch
[2021-09-03] MEDS: IBUPROFEN 600 MG TABLET PO ×2 (04:37→19:58)
[2021-09-03] MEDS: SIMETHICONE 80 MG TAB.CHEW PO ×3 (04:37→19:58)
[2021-09-03] MEDS: ALPRAZolam (*CRX) 0.5 MG TABLET PO ×3 (04:37→20:02)
[2021-09-03] MEDS: HYDROcodone/acetaminophen (*CRX) 5-325 MG TABLET 1 TAB PO ×3 (04:38→19:58)
--- NOTE | 2021-09-03 07:24 | PM.OBPNVD ---
OB - PN: Subj Subjective Date/time seen: 09/03/21 07:24 Patient comments: no complaints baby status: doing well OB - PN: Obj Data Labs CBC & Chem 7: 09/02/21 06:20 08/31/21 23:08 OB - PN A/P Plan day: 3 Plan: routine care and discharge home Time Spent With Patient Time: Total time spent is greater than 50% in coordination of care (as documented) at patient's floor/unit and/or counseling patient: Review of Systems Review of Systems: All systems reviewed & are unremarkable except as noted in HPI and below Exam Narrative: Incision CDI Const: General: cooperative and healthy appearing
[2021-09-03] MEDS: POLYSACCHARIDE IRON COMPLEX 150 MG CAPSULE PO ×2 (09:23→20:00)
[2021-09-03] MEDS: DOCUSATE SODIUM 100 MG CAPSULE PO ×2 (09:24→19:58)
[2021-09-03] MEDS: BENZOCAINE/MENTHOL (*BKC) 18 EA LOZENGE 1 LOZENGE PO (16:37)
[2021-09-03] MEDS: BENZONATATE 100 MG CAPSULE PO (16:38)
[2021-09-03] MEDS: SODIUM CHLORIDE 0.9% IV 250 ML 30 ML IV CONT (17:58)
[2021-09-04] MEDS: ALBUTEROL SULFATE (*SP) AEROSOL 1 PUFF 2 PUFF INHALATION
[2021-09-04 00:11] LABS: Hematocrit 32.5 % (37.0-47.0); Hemoglobin 10.8 g/dL (12.0-15.0); Mean Corpuscular HGB Conc 33.2 g/dl (32-36); Mean Corpuscular Hemoglobin 29.7 pg (26-34); Mean Corpuscular Volume 89.3 fl (80-100); Mean Platelet Volume 9.6 fl (7.4-10.4); Platelet Count Result 289 k/mm3 (150-375); Red Blood Count 3.64 M/mm3 (4.2-5.4); Red Cell Distribution Width 13.9 % (11.5-14.5); White Blood Count 9.3 K/mm3 (4.5-10.0)
[2021-09-04 00:27] LABS: Alanine Aminotransferase 22 U/L (4-35); Albumin Level 3.5 g/dL (3.5-5.1); Alkaline Phosphatase 146 U/L (38-126); Anion Gap 7 mmol/L (8-16); Aspartate Amino Transferase 38 U/L (14-36); Bilirubin,Total 0.6 mg/dL (0.2-1.3); Blood Urea Nitrogen 9 mg/dL (7-17); Calcium 8.7 mg/dL (8.4-10.2); Carbon Dioxide 21 mmol/L (22-30); Chloride 107 mmol/L (98-107); Estimated CRCL calculation 131 ml/min; Estimated Glomerular Filt Rate > 60; Glucose 94 mg/dL (65-110); Potassium 4.1 mmol/L (3.4-5.0); Sodium 135 mmol/L (137-145); Uric Acid 5.7 mg/dL (2.5-7.5)
--- NOTE | 2021-09-04 05:45 | P.PNOB_ITS ---
OB - PN: Subj Subjective Date/time seen: 09/04/21 05:45 Interval history: c/o cough, has incentive spirometer, active smoker, BP slightly elevated, asymptomatic [place] baby status: doing well OB - PN: Obj Data Labs CBC & Chem 7: 09/03/21 23:50 09/03/21 23:50 Labs: Laboratory Results - last 24 hr 08/31/21 09/03/21 09/03/21 23:12 23:50 23:50 WBC 9.3 RBC 3.64 L Hgb 10.8 L D Hct 32.5 L MCV 89.3 MCH 29.7 MCHC 33.2 RDW 13.9 Plt Count 289 MPV 9.6 Sodium 135 L Potassium 4.1 Chloride 107 Carbon Dioxide 21 L Anion Gap 7 L BUN 9 Creatinine 0.60 L Estim Creat Clear Calc 131 Estimated GFR > 60 Glucose 94 Uric Acid 5.7 Calcium 8.7 Total Bilirubin 0.6 AST 38 H ALT 22 Alkaline Phosphatase 146 H Total Protein 7.0 Albumin 3.5 Blood Type O Positive Antibody Screen Negative Crossmatch See Detail OB - PN A/P Plan day: 4 Plan: routine care and discharge home Comments: Pt WBC count has decreased and Hemoglobin has increased, encourage incentive spirometer, encouraged smoking cessation, continue labetalol 200mg BID, f/u in office one week Time Spent With Patient Time: Total time spent is greater than 50% in coordination of care (as documente d) at patient's floor/unit and/or counseling patient: Review of Systems Review of Systems: All systems reviewed & are unremarkable except as noted in HPI and below Exam Narrative: Incision CDI Const: General: cooperative and Physically active
[2021-09-04 06:08] VITALS: PULSE 102
[2021-09-04] MEDS: LABETALOL HCL 100 MG TABLET 200 MG PO (06:08)
[2021-09-04 07:35] VITALS: BP 112/76; PULSE 94; RESP 22; TEMP 36.8; O2SAT 95
[2021-09-04] MEDS: SIMETHICONE 80 MG TAB.CHEW PO (07:39)
[2021-09-04] MEDS: POLYSACCHARIDE IRON COMPLEX 150 MG CAPSULE PO (07:40)
[2021-09-04] MEDS: HYDROcodone/acetaminophen (*CRX) 5-325 MG TABLET 1 TAB PO (07:40)
[2021-09-04] MEDS: DOCUSATE SODIUM 100 MG CAPSULE PO (07:40)
[2021-09-04] MEDS: IBUPROFEN 600 MG TABLET PO (07:41)
[2021-09-04] MEDS: ALPRAZolam (*CRX) 0.5 MG TABLET PO (07:55)
[2021-09-04] MEDS: BENZONATATE 100 MG CAPSULE PO (07:55)
[2021-09-04 15:46] LABS: Hepatitis C Viral RNA PCR 2650000 IU/mL
[2021-09-07 14:25] LABS: HCV Genotype, LiPA 2
--- NOTE | 2021-09-07 18:10 | PM.OBDSVD ---
DS: Admitting Diagnosis Discharge Date 09/04/21 Admitting Diagnosis placenta previa, bleeding OB - DS: Summary OB Procedures : None OB Procedures Intrapartum: OB Procedures: : Transfusion Peripartum Data Procedures: Procedures Operation Date: 08/31/21 23:20 Actual Procedure Side Surgeon p Section Not Applicable Emilia Glover MD Time Spent with Patient Time attestation: Total time spent providing and/or coordinating discharge services: DS: Data Data Completed and Pending Completed studies during hospitalization: Pending at discharge 08/31/21 23:41 Surgical [PTH] Routine Labs on day of discharge: Labs from last 24 hours 09/01/21 08:46 HCV RNA Genotype LiPA 2 Discharge Plan Discharge Attending physician on discharge: Maria Guadalupe rAias Consulting providers: Maria Guadalupe Arias ; Chichi Hancock ; Fabián Sunshine V. ; Guero Hooker Discharging Clinician: Chichi Hancock Patient Disposition: Home, Self-Care Activity: pelvic rest Diet: regular Discharge Instructions: Education: Mom and Baby Guide Given to: Mother Follow-Up: Call your delivering provider's office for an appointment to be seen in: 1 Week Mom and baby should come to the [facility] for the follow-up appointment. Appointment Date/Time: Will schedule when baby has been discharged. What to expect at your follow-up visit: Call [phone] if you are unable to keep your appointment time. BREAST CARE: * Wear a snug supportive bra. * For engorgement discomfort: Breast Feeding: * Apply warm moist washcloths * Express milk as needed to relieve engorgement * Wear loose clothing Bottle Feeding: * May apply ice packs ABDOMINAL INCISION: (if applicable) * Allow incision to air dry * Do NOT use lotions for powders on your incision * When showering, allow soap and water to run over the incision, but do not wash incision ACTIVITY: * Rest as much as possible. * Do not exercise or lift anything heavier than your baby (such as laundry or other children.) * Avoid stairs or driving as much as possible. * Do not put anything into the vagina. No douching, tampons, or sexual activity until seen by physician. NOTIFY PHYSICIAN IF YOU HAVE ANY QUESTIONS OR IF ANY OF THE FOLLOWING SYMPTOMS OCCUR: * If your episiotomy or incision becomes red, swollen, or more painful than what you have experienced in the hospital. * If your vaginal bleeding becomes foul smelling. * If your vaginal bleeding becomes more heavy than a period or if your bleeding changes from pink to bright red. However, you may pass an occasional walnut-sized clot once or twice for the first week . * If you experience a sharp, shooting pain in you calves. * If you discover a hard, reddened area on your breast or if you experience flu-like symptoms. DIET: * Eat regular, well-balanced meals. * Drink plenty of fluids daily. If , drink to thirst. Patient Instructions: Antibiotic Form Stand Alone Forms: General Discharge Information Follow-up/Referrals: Emilia Glover MD [Physician] - 1 Week Discharge Medications: New hydrocodone-acetaminophen 5-325 mg Tablet 1 tablet PO Q3H PRN (Reason: Moderate Pain (4-6)) Qty: 20 RF: 0 polysaccharide iron complex 150 mg iron Capsule 150 mg PO BIDWM Qty: 60 RF: 0 benzonatate 100 mg Capsule 100 mg PO TID Qty: 30 RF: 0 alprazolam 0.5 mg Tablet 0.5 mg PO TID PRN (Reason: Anxiety) Qty: 10 RF: 0 Continued quetiapine 150 mg tablet extended release 24 hr 150 mg PO QPM 30 Days Qty: 30 RF: 2 Date of admission: 08/31/21 22:39 Primary Care Provider: Bibi,Darian Eckert Jr. Admitting Provider: Emilia Glover Attending physician on admission: Emilia Glover Condition: Stable
== END 2021-09-04 12:00 | disposition home or self-care (01) | DRG 787 ==
LOC: ANHLDR 22:48 → ANHOB2 09-01 02:54
PROVIDERS: Advanced Practice Midwife; Obstetrics & Gynecology; Admitting Provider Obstetrics & Gynecology; PCP Internal Medicine; Visit Provider Obstetrics & Gynecology
PROC: (CPT 59514; principal; 2021-08-31 23:20)
DX: O44.13 Complete placenta previa with hemorrhage, third trimester (principal); O98.42 Viral hepatitis complicating childbirth; B19.20 Unspecified viral hepatitis C without hepatic coma; O99.334 Smoking (tobacco) complicating childbirth; F17.210 Nicotine dependence, cigarettes, uncomplicated; O99.284 Endocrine, nutritional and metabolic diseases complicating childbirth; R05.9 Cough, unspecified; E03.9 Hypothyroidism, unspecified; F31.9 Bipolar disorder, unspecified; O36.5930 Maternal care for other known or suspected poor fetal growth, third trimester, not applicable or unspecified; Z3A.34 34 weeks gestation of pregnancy; Z37.0 Single live birth
CPT/HCPCS: 36415; 36430; 71046; 80053; 80076; 80307; 84439; 84443; 84550; 85025; 85027; 86592; 86703; 86762; 86850; 86900; 86901; 86920; 87340; 87522; 88307; 94640; A9270; C1765; G0432; J0330; J1100; J1170; J1885; J2270; J2274; J2405; J2704; J3480; J7050; P9016

== ENCOUNTER 2022-05-22 16:51 | Emergency (ER) | payer OTHER, MEDICAID, SELFPAY ==
[2022-05-22 17:30] VITALS: BP 149/97; PULSE 96; RESP 20; TEMP 36.5; O2SAT 100
== END 2022-05-22 18:17 | disposition left against medical advice (07) ==
PROVIDERS: Emergency Provider Nurse Practitioner Family
DX: Z53.21 Procedure and treatment not carried out due to patient leaving prior to being seen by health care provider (principal)
CPT/HCPCS: 99199

== ENCOUNTER 2025-03-10 13:30 | Outpatient (RCR) | payer OTHER, SELFPAY ==
--- NOTE | 2025-03-06 18:04 | OTOPEVAL1 ---
Assessment and note entered by Bernice Coburn OT Evaluation Information Assessment Status Evaluation ICD-10 Condition Codes (OT) Lymphedema I89.0 Subjective Information Pt. reports 4 years ago she began to have BLE swelling. Pt. reports no onset of injury or surgery. Pt. reports swelling in dorsum of feet and ankles, and through upper legs and belly. Pt reports history of non-healing wound on L LE, for which she was going to the wound clinic which she reports was 2 years ago. Pt. reports in pain on top of feet, states that sometimes the tops of her feet will get red and burn. Pt. reports she cannot sit or stand for more than 15 minutes without swelling and increased pain, making many activities intolerable Reported Pain Level Pain Score 0: Self Report Assessment OT Clinical Summary Pt. is 34 year old F, presenting with stage 1 Lymphedema. On arrival for evaluation, pt. displays mild swelling, but reports she frequently experiences BLE swelling from dorsum of feet, in lower legs, upper legs, and into abdomen , with increasing pain. Pt. reports this frequently limits her capacity and tolerance for functional mobility and activity. Pt. will benefit from modified intensive phase of complete decongestive treatment, including manual lymph drainage, use of compression pump, fitting for appropriate compression garments, therapeutic exercise and education regarding condition and chcf management. Plan of Care Interventions Therapeutic Exercise,Manual Therapy,Therapeutic Activities,Self-Care/Home Management,Other Other Interventions vasopneumatic pump OT Services Indicated Yes Treatment Frequency and 2 x week/ 10 visits Duration These treatments will address the objective and functional deficits as defined above. The patient will be advanced safely and appropriately in order for the patient to progress towards his/her prior level of function. Additional exercises will be introduced and as well as a comprehensive home exercise program upon discharge, if needed, ?to ensure carryover of functional gains achieved in the clinic. This treatment plan has been reviewed and agreement upon by the patient.
--- NOTE | 2025-03-06 18:05 | OPREHPOC ---
Outpatient Therapy Plan of Care This is a Multidisciplinary Plan of Care that may contain components documented by all disciplines (PT, OT, and ST.) OT Problem 1 OT Problem #1 Knowledge Deficit OT Goal 1 Goal / Goal Update Pt. will demonstrate independence in HEP Pt. will demonstrate knowledge and return demonstration of expectations for maintenance phase of treatment Target Visit 10 OT Problem 2 OT Problem #2 Impaired Lymphatic System OT Goal 1 Goal / Goal Update Pt. will display consistent BLE volume reduction 6 /7 days per week Target Visit 10 OT Problem 3 OT Problem #3 Pain OT Goal 1 Goal / Goal Update Pt. will report increased tolerance for sitting and standing activities, demonstrated by tolerance for 30 minutes of standing without report of >2/ 10 pain Target Visit 10
--- NOTE | 2025-03-18 12:55 | PCOTNOTE ---
Pt. did not arrive for 03/18/25 12:30 appointment. Called pt. without answer, unable to leave message due to full voicemailbox.
--- NOTE | 2025-03-28 13:09 | PCOTNOTE ---
Addendum entered by Bernice Coburn OT 03/28/25 13:42: Pt. emailed therapist this morning to cancel due to child's illness. Returned email to inform pt. to call senior front end web developer next time. Original Note: Pt. scheduled for 12:30 PM appointment on this date. Pt. did not arrive. Pt. called with no answer, unable to leave message.
--- NOTE | 2025-03-31 09:49 | PCOTNOTE ---
Pt. is no call no show for this appointment. Called phone number, but was unable to leave message. Sent pt. email, informing her to cancelation of remainder of appointments. D/Cing at this time.
--- NOTE | 2025-03-31 09:52 | OTOPDC ---
Assessment and note entered by Bernice Coburn, OT Evaluation Information Assessment Status Discharge - Pt Not Present Assessment OT Clinical Summary Pt. being discharged from services at this time due to repeated no call, no showing to scheduled appointments with repeated cancelations. Plan of Care OT Services Indicated No
== END 2025-03-31 10:25 | disposition home or self-care (01) ==
LOC: ANHOT 13:30
PROVIDERS: PCP Surgery; Visit Provider Surgery
DX: I89.0 Lymphedema, not elsewhere classified (principal)
CPT/HCPCS: 97016; 97110; 97140; 97165